=== PATIENT | female | born 1945 | race Caucasian/White ===

== ENCOUNTER 2023-04-02 12:42 | Inpatient (IN) ==
[2023-04-02 12:58] VITALS: BMI 37.4
[2023-04-02 13:00] LABS: ABG HCO3 27.1 mmol/L (22-26)
--- NOTE | 2023-04-02 13:05 | DR.SOBA ---
HPI Time Seen Time Seen by Provider: 04/02/23 13:04 Primary Care Physician Primary Care Physician: Mahamed Complaints Chief Complaint:: Shortness of breath, saw PCP yesterday and then called PCP today and was told to come to the ER. Zonia states that they checked her O2 at home and she was on sating in the 80s. COVID-19 Coronavirus risk:travel/contact w/high risk person: No Has patient experienced Coronavirus symptoms: No Source History Provided: Patient Mode of Arrival Mode of Arrival: Ambulatory Timing Onset of Chief Complaint: 04/02/23 PMH PMH Past Medical History: Yes Past Medical History: Hypertension and Hypothyroidism Past Medical History Comment: incontinence, pre diabetes (A1C 6.3) Past Surgical History: Yes Surgical History: Appendectomy, , Cholecystectomy, Hysterectomy, Ortho Surgery and Tonsillectomy Past Surgical History Comment: left total knee, dental surgery, CMP left wrist, back surgery Family History History of Family Medical Conditions: Yes Family Medical History: Diabetes Mellitus, Cancer, Coronary Artery Disease and Hypertension Social History Alcohol Use: None Do you use any recreational Drugs:: No Lives With: Family Lives Where: Home Travel Risk Coronavirus risk:travel/contact w/high risk person: No Has patient experienced Coronavirus symptoms: No Infectious screening Have you traveled outside the country in the last 6 months?: No Isolation: Standard PE Vital Signs Vitals: Vital Signs Temperature 98.7 F Temperature 98.7 F Pulse Rate [Left Radial] 63 Pulse Rate 58 Pulse Rate 59 Pulse Rate 63 Respiratory Rate 14 Respiratory Rate 16 Respiratory Rate 24 Respiratory Rate 24 Blood Pressure [Left Arm] 180/79 Blood Pressure 180/79 O2 Sat by Pulse Oximetry 94 O2 Sat by Pulse Oximetry 94 O2 Sat by Pulse Oximetry 87 O2 Sat by Pulse Oximetry 87 ROR Labs Reviewed 04/02/23 13:25 04/02/23 13:25 Laboratory: WBC 8.1 X10^3/uL (3.6-10.0) 04/02/23 13:25 RBC 3.58 X10^6/uL (3.5-5.4) 04/02/23 13:25 Hgb 11.4 g/dL (12.0-16.0) L 04/02/23 13:25 Hct 33.2 % (36.0-47.0) L 04/02/23 13:25 MCV 92.9 fL (80.0-100.0) 04/02/23 13:25 MCH 31.9 pg (27.0-34.0) 04/02/23 13:25 MCHC 34.4 g/dL (33.0-35.0) 04/02/23 13:25 RDW 13.8 % (11.6-16.5) 04/02/23 13:25 Plt Count 293 X10^3/uL (150.0-450.0) 04/02/23 13:25 MPV 8.3 fL (7.4-11.0) 04/02/23 13:25 Neut % (Auto) 76.4 % (42.0-75.0) H 04/02/23 13:25 Lymph % (Auto) 12.8 % (21.0-51.0) L 04/02/23 13:25 [place] % (Auto) 5.3 % (0.0-13.0) 04/02/23 13:25 Eos % (Auto) 4.0 % (0.9-2.9) H 04/02/23 13:25 Baso % (Auto) 1.5 % (0.2-1.0) H 04/02/23 13:25 Neut # (Auto) 6.2 x10^3/uL (2.2-4.8) H 04/02/23 13:25 Lymph # (Auto) 1.0 X10^3/uL (1.3-2.9) L 04/02/23 13:25 [place] # (Auto) 0.4 x10^3/uL (0.3-0.8) 04/02/23 13:25 Eos # (Auto) 0.3 x10^3/uL (0.0-0.2) H 04/02/23 13:25 Baso # (Auto) 0.1 X10^3/uL (0.0-0.1) 04/02/23 13:25 Absolute Nucleated RBC 0.0 /100WBC 04/02/23 13:25 D-Dimer 1.04 ug/ml (0.0-0.57) H 04/02/23 13:25 Sample Site Rbra 04/02/23 12:50 ABG pH 7.450 (7.35-7.45) 04/02/23 12:50 ABG pCO2 39.0 mmHg (35.0-45.0) 04/02/23 12:50 ABG pO2 47.0 mmHg (80.0-100.0) L* 04/02/23 12:50 ABG HCO3 27.1 mmol/L (22-26) H 04/02/23 12:50 ABG O2 Saturation 85.0 % (90-100) L 04/02/23 12:50 ABG Base Excess 3.0 mmol/L (-2.0-2.0) H 04/02/23 12:50 Damien Test N/a 04/02/23 12:50 A-a Gradient 54.0 mmHg 04/02/23 12:50 FiO2 21.0 04/02/23 12:50 Blood Gas Comments Pt alvaro well elj 04/02/23 12:50 Sodium 131 mmol/L (136-145) L 04/02/23 13:25 Corrected Sodium 132 mmol/L (136-145) L 04/02/23 13:25 Potassium 4.2 mmol/L (3.5-5.1) 04/02/23 13:25 Chloride 98 mmol/L (98-107) 04/02/23 13:25 Carbon Dioxide 23.7 mmol/L (21-32) 04/02/23 13:25 BUN 11 mg/dL (7-18) 04/02/23 13:25 Creatinine 0.83 mg/dL (0.55-1.02) 04/02/23 13:25 Est GFR (MDRD) Af Amer > 60 (>60) 04/02/23 13:25 Est GFR (MDRD) Non-Af > 60 (>60) 04/02/23 13:25 Glucose 147 mg/dL (65-99) H 04/02/23 13:25 Calcium 8.7 mg/dL (8.5-10.1) 04/02/23 13:25 Corrected Calcium 9.4 mg/dL (8.5-10.1) 04/02/23 13:25 Total Bilirubin 0.40 mg/dL (0.2-1.0) 04/02/23 13:25 AST 21 Units/L (15-37) 04/02/23 13:25 ALT 10 Units/L (12-78) L 04/02/23 13:25 Alkaline Phosphatase 55 Units/L (46-116) 04/02/23 13:25 B-Natriuretic Peptide 415 pg/mL (0-79) H 04/02/23 13:25 Total Protein 7.0 g/dL (6.4-8.2) 04/02/23 13:25 Albumin 3.1 g/dL (3.4-5.0) L 04/02/23 13:25 Globulin 3.9 g/dL (2.5-4.5) 04/02/23 13:25 Albumin/Globulin Ratio 0.8 Ratio (1.1-2.1) L 04/02/23 13:25 Specimen Type Catherized urine 04/02/23 16:23 Urine Color Pale yellow (YELLOW) 04/02/23 16:23 Urine Appearance Clear (CLEAR) 04/02/23 16:23 Urine pH 7.0 (5.0 - 8.0) 04/02/23 16:23 Ur Specific [place] 1.015 (1.000-1.030) 04/02/23 16:23 Urine Protein 1+ (NEGATIVE) 04/02/23 16:23 Urine Glucose (UA) Negative (NEGATIVE) 04/02/23 16:23 Urine Ketones Negative (NEGATIVE) 04/02/23 16:23 Urine Blood Negative (NEGATIVE) 04/02/23 16:23 Urine Nitrite Negative (NEGATIVE) 04/02/23 16:23 Urine Bilirubin Negative (NEGATIVE) 04/02/23 16:23 Urine Urobilinogen Normal (NORMAL) 04/02/23 16:23 Ur Leukocyte Esterase Negative (NEGATIVE) 04/02/23 16:23 Urine RBC 0-2 /HPF (0-3) 04/02/23 16:23 Urine WBC None seen /HPF (0-5) 04/02/23 16:23 Ur Squamous Epith Cells Rare /HPF (NEGATIVE) 04/02/23 16:23 Ur Renal Epithelial Cell Rare /HPF (NEGATIVE) 04/02/23 14:22 Urine Bacteria Negative /HPF (NEGATIVE) 04/02/23 16:23 Urine Yeast Rare /HPF (NEGATIVE) 04/02/23 16:23 Ur Culture Indicated? No/not indicated 04/02/23 16:23 SARS-CoV-2 (PCR) Negative (NEGATIVE) 04/02/23 12:56 Influenza Type A (PCR) Negative (NEGATIVE) 04/02/23 12:56 Influenza Type B (PCR) Negative (NEGATIVE) 04/02/23 12:56 RSV (PCR) Negative (NEGATIVE) 04/02/23 12:56 Opioid Opioid Risk Tool Age (Jed box if 16-45): No History of Preadolescent Sexual Abuse: No Total: 0 Total Score Risk Category: Low Risk Copyright: Hari SOTO predicting aberrant behaviors Discharge Plan Discharge Plan Patient Disposition: 01 HOME, SELF-CARE Condition: Stable Prescriptions: No Action gabapentin 600 mg tablet 600 mg PO QHS Patient Comments: TAKE ONE TABLET BY MOUTH AT BEDTIME atorvastatin 20 mg Tablet 20 mg PO QHS tizanidine 4 mg tablet 4 mg PO QHS Patient Comments: TAKE ONE TABLET BY MOUTH AT BEDTIME hydrocodone-acetaminophen 10-325 mg tablet 1 tab PO TID PRN Patient Comments: TAKE ONE TABLET BY MOUTH THREE TIMES DAILY esomeprazole magnesium [Nexium] 40 mg Capsule,Delayed Release(Dr/Ec) 80 mg PO BID levothyroxine [Synthroid] 125 mcg tablet 125 mcg PO DAILY Patient Comments: TAKE ONE TABLET BY MOUTH DAILY dicyclomine 10 mg Capsule 10 mg PO BID PRN pramipexole 1.5 mg tablet 1.5 mg PO BID Patient Comments: TAKE ONE TABLET BY MOUTH TWICE DAILY escitalopram oxalate [Lexapro] 20 mg Tablet 20 mg PO DAILY PRN duloxetine [Cymbalta] 30 mg Capsule,Delayed Release(Dr/Ec) 30 mg PO BID fenofibrate nanocrystallized 145 mg tablet 145 mg PO QHS Patient Comments: TAKE ONE TABLET BY MOUTH DAILY nebivolol [Bystolic] 20 mg Tablet 20 mg PO DAILY Myrbetriq 50 mg Tablet Extended Release 24 Hr 50 mg PO QAM Ozempic 0.25 mg or 0.5 mg(2 mg/1.5 mL) pen injector 0.25 mg SUBCUT WEEKLY Patient Comments: INJECT 0.5 Milligram(s) Subcutaneous once a week Rx Instructions: TAKES ON TUESDAY zolpidem 10 mg tablet 10 mg PO QHS Patient Comments: TAKE ONE TABLET BY MOUTH AT BEDTIME Health Concerns: Post Hospitalization: new medications and changes needed to prevent readmission or further decline. Pt educated and given instructions on all concerns. Plan of Treatment: Continue with present treatment and follow up plan. Pt is to keep follow up appointment as instructed and take medications as ordered. Orders to Discharge Patient Discharge Orders: Transfer (Routine); Ordered 04/02/23 Ordered By: JOEL BONNER Follow ups/Referrals Follow ups/Referrals: Alfonso Irby [Primary Care Provider] - 3 days Instructions Stand Alone Forms: Post Hospital Follow Up Care
[2023-04-02 13:31] LABS: BASOPHILS # (AUTO) 0.1 X10^3/uL (0.0-0.1); BASOPHILS % (AUTO) 1.5 % (0.2-1.0); EOSINOPHILS # (AUTO) 0.3 x10^3/uL (0.0-0.2); HEMATOCRIT 33.2 % (36.0-47.0); HEMOGLOBIN 11.4 g/dL (12.0-16.0); LYMPHOCYTES % (AUTO) 12.8 % (21.0-51.0); MEAN CORPUSCULAR HEMOGLOBIN 31.9 pg (27.0-34.0); MEAN CORPUSCULAR HGB CONC 34.4 g/dL (33.0-35.0); MEAN CORPUSCULAR VOLUME 92.9 fL (80.0-100.0); MEAN PLATELET VOLUME 8.3 fL (7.4-11.0); MONOCYTES # (AUTO) 0.4 x10^3/uL (0.3-0.8); MONOCYTES % (AUTO) 5.3 % (0.0-13.0); NEUTROPHILS # (AUTO) 6.2 x10^3/uL (2.2-4.8); NEUTROPHILS % (AUTO) 76.4 % (42.0-75.0); PLATELET COUNT 293 X10^3/uL (150.0-450.0); RED BLOOD COUNT 3.58 X10^6/uL (3.5-5.4); RED CELL DISTRIBUTION WIDTH 13.8 % (11.6-16.5); WHITE BLOOD COUNT 8.1 X10^3/uL (3.6-10.0)
[2023-04-02 13:43] LABS: ALANINE AMINOTRANSFERASE 10 Units/L (12-78); ALBUMIN 3.1 g/dL (3.4-5.0); ALKALINE PHOSPHATASE 55 Units/L (46-116); ASPARTATE AMINO TRANSFERASE 21 Units/L (15-37); BLOOD UREA NITROGEN 11 mg/dL (7-18); CALCIUM 8.7 mg/dL (8.5-10.1); CARBON DIOXIDE 23.7 mmol/L (21-32); CHLORIDE 98 mmol/L (98-107); COR CA(FOR HYPOALB) 9.4 mg/dL (8.5-10.1); COR NA(FOR HYPERGLY) 132 mmol/L (136-145); CREATININE 0.83 mg/dL (0.55-1.02); GLUCOSE 147 mg/dL (65-99); POTASSIUM 4.2 mmol/L (3.5-5.1); SODIUM 131 mmol/L (136-145); eGFR NON BLACK RACES > 60 (>60)
--- NOTE | 2023-04-02 13:46 | RAD ---
EXAM:CHEST, 1 VIEWHISTORY:Shortness of breathCOMPARISON:None available.FINDINGS:The trachea is midline. The cardiac silhouette is enlarged with a tortuous thoracic aorta . Increased interstitial changes with prominent vascular markings are observed consistent with underlying CHF.. The bony thorax is unremarkable.IMPRESSION:Increased interstitial changes with prominent vascular markings are observed consistent with underlying CHF.THIS IS AN ELECTRONICALLY VERIFIED FINAL REPORT04/02/2023 1:33 PM - Electronically signed by Jaswant Jordan MD
[2023-04-02 14:35] LABS: BILIRUBIN,URINE NEGATIVE (NEGATIVE); BLOOD/HEMOGLOBIN,URINE NEGATIVE (NEGATIVE); GLUCOSE, URINE NEGATIVE (NEGATIVE); KETONES,URINE NEGATIVE (NEGATIVE); LEUKOCYTE ESTERASE ,URINE NEGATIVE (NEGATIVE); NITRITES,URINE NEGATIVE (NEGATIVE); PH,URINE 6.5 (5.0 - 8.0); PROTEIN,URINE 1+ (NEGATIVE); UROBILINOGEN,URINE NORMAL (NORMAL)
[2023-04-02] MEDS ORDERED: OMNIPAQUE 350 mg/mL 100 mL BTL 100 ML ONE (14:50)
[2023-04-02 14:52] LABS: APPEARANCE,URINE CLEAR (CLEAR); COLOR,URINE YELLOW (YELLOW)
[2023-04-02 14:53] LABS: BACTERIA,URINE NEGATIVE /HPF (NEGATIVE); RBC,URINE 0-2 /HPF (0-3); RENAL EPITHELIAL CELLS,URINE RARE /HPF (NEGATIVE); SQUAMOUS EPITHELIAL CELL,UR RARE /HPF (NEGATIVE)
[2023-04-02 14:54] LABS: YEAST,URINE RARE /HPF (NEGATIVE)
--- NOTE | 2023-04-02 15:41 | CT ---
EXAM:CTA, CHESTHISTORY:Shortness of breathCOMPARISON:None available.TECHNIQUE:Multiple axial images of the chest were obtained from the thoracic inlet to the upper abdomen after the administration of IV contrast. 3D reconstructions utilizing axial MIPS imaging was performed and reviewed. Dose reduction techniques including Automated Exposure Control (AEC) and adjustment of mA and kV were utilized.FINDINGS:The mediastinum does not demonstrate significant pathological lymphadenopathy. There is no paracardial effusion observed. The thoracic aorta is normal in its contour without evidence for aneurysmal dilatation. The central pulmonary arterial system does not demonstrate central filling defects to suggest pulmonary emboli.Evaluation of the lung parenchyma demonstrates diffuse ground-glass opacities throughout the right and left hemithorax consistent with a developing pulmonary edema. Likewise, very small layering pleural effusions of the right and left hemithorax are observed.. The bony thorax is unremarkable in its appearance . The visualized portions of the upper abdomen are grossly unremarkable .IMPRESSION:No evidence for acute pulmonary embolus can be observed. However, developing ground-glass opacities throughout the right and left hemithorax consistent with developing pulmonary edema and associated CHF.Very small layering pleural effusions on the right and left are noted.THIS IS AN ELECTRONICALLY VERIFIED FINAL REPORT04/02/2023 3:29 PM - Electronically signed by Jaswant Jordan MD
[2023-04-02] MEDS ORDERED: LASIX IVP ONE ×2 (15:59→16:05)
[2023-04-02 16:38] LABS: BILIRUBIN,URINE NEGATIVE (NEGATIVE); BLOOD/HEMOGLOBIN,URINE NEGATIVE (NEGATIVE); GLUCOSE, URINE NEGATIVE (NEGATIVE); KETONES,URINE NEGATIVE (NEGATIVE); LEUKOCYTE ESTERASE ,URINE NEGATIVE (NEGATIVE); NITRITES,URINE NEGATIVE (NEGATIVE); PROTEIN,URINE 1+ (NEGATIVE); UROBILINOGEN,URINE NORMAL (NORMAL)
[2023-04-02 16:50] LABS: APPEARANCE,URINE CLEAR (CLEAR); COLOR,URINE PALE YELLOW (YELLOW); RBC,URINE 0-2 /HPF (0-3); SQUAMOUS EPITHELIAL CELL,UR RARE /HPF (NEGATIVE)
[2023-04-02 16:51] LABS: BACTERIA,URINE NEGATIVE /HPF (NEGATIVE); YEAST,URINE RARE /HPF (NEGATIVE)
[2023-04-02] MEDS: K-DUR TAB 20 MEQ PO SCH (21:13)
[2023-04-02] MEDS: NORCO 5/325 MG TAB PO PRN (22:49)
[2023-04-03] MEDS ORDERED: Atrovent NEB TX 0.02% NEB ONE (01:02)
[2023-04-03] MEDS ORDERED: Atrovent NEB TX 0.02% ONE (01:05)
[2023-04-03] MEDS ORDERED: MORPHINE SULFATE INJ 2 MG INJ IVP ONE (01:18)
[2023-04-03 06:47] LABS: BASOPHILS # (AUTO) 0.1 X10^3/uL (0.0-0.1); BASOPHILS % (AUTO) 1.2 % (0.2-1.0); EOSINOPHILS # (AUTO) 0.4 x10^3/uL (0.0-0.2); EOSINOPHILS % (AUTO) 3.6 % (0.9-2.9); HEMATOCRIT 34.8 % (36.0-47.0); HEMOGLOBIN 11.8 g/dL (12.0-16.0); LYMPHOCYTES # (AUTO) 1.5 X10^3/uL (1.3-2.9); LYMPHOCYTES % (AUTO) 13.5 % (21.0-51.0); MEAN CORPUSCULAR HEMOGLOBIN 31.3 pg (27.0-34.0); MEAN CORPUSCULAR VOLUME 92.1 fL (80.0-100.0); MEAN PLATELET VOLUME 8.9 fL (7.4-11.0); MONOCYTES # (AUTO) 0.7 x10^3/uL (0.3-0.8); MONOCYTES % (AUTO) 6.4 % (0.0-13.0); NEUTROPHILS # (AUTO) 8.4 x10^3/uL (2.2-4.8); NEUTROPHILS % (AUTO) 75.3 % (42.0-75.0); PLATELET COUNT 372 X10^3/uL (150.0-450.0); RED BLOOD COUNT 3.78 X10^6/uL (3.5-5.4); RED CELL DISTRIBUTION WIDTH 13.9 % (11.6-16.5); WHITE BLOOD COUNT 11.2 X10^3/uL (3.6-10.0)
[2023-04-03 07:20] LABS: ALANINE AMINOTRANSFERASE 13 Units/L (12-78); ALBUMIN 3.4 g/dL (3.4-5.0); ALKALINE PHOSPHATASE 61 Units/L (46-116); BLOOD UREA NITROGEN 11 mg/dL (7-18); CARBON DIOXIDE 24.7 mmol/L (21-32); CREATININE 0.87 mg/dL (0.55-1.02); GLUCOSE 121 mg/dL (65-99); TOTAL PROTEIN 7.9 g/dL (6.4-8.2); eGFR NON BLACK RACES > 60 (>60)
[2023-04-03 07:24] LABS: CHLORIDE 97 mmol/L (98-107); COR NA(FOR HYPERGLY) 135 mmol/L (136-145); POTASSIUM 4.2 mmol/L (3.5-5.1); SODIUM 134 mmol/L (136-145)
[2023-04-03 07:45] LABS: ASPARTATE AMINO TRANSFERASE 28 Units/L (15-37)
--- NOTE | 2023-04-03 07:45 | RAD ---
HISTORYCHF, PULMONARY EDEMASTUDYCHEST, 1 [id number]/2023FINDINGSThe cardiomediastinal silhouette is stable. No acute airspace disease. Probable small effusions. No pneumothorax. The bony thorax appears intact.IMPRESSIONSimilar probable small effusions.Electronically signed by: EARL SUGGS (Apr 03, 2023 07:44:18)
[2023-04-03] MEDS: K-DUR TAB 20 MEQ PO SCH ×2 (09:19→20:59)
[2023-04-03] MEDS: MILK OF MAGNESIA PO SCH ×2 (09:19→20:59)
[2023-04-03] MEDS: COLACE CAP 100 MG PO SCH ×2 (09:19→20:59)
[2023-04-03] MEDS: LASIX IVP SCH ×2 (09:20→16:46)
[2023-04-03] MEDS: NORCO 5/325 MG TAB PO PRN ×2 (11:32→19:33)
--- NOTE | 2023-04-03 14:16 | DR.H&P ---
H&P - History & Physical for Day of: H&P Date: 04/02/23 - Chief Complaint Chief Complaint: SOB - History of Present Illness History of Present Illness: Pt is 77 WF, ER admission with fo shortness of breath. Pt reports she saw PCP ~ and was give augmentin for URI. Daugther states that they checked her O2 at home and she was on sating in the 80s. Pt reports her last echo was in DECEMBER and heart cath in January without intervention required. Pt denies any fever or GI symptoms. - Past Medical History Past Medical History: Arthritis, Hypertension, Hypothyroidism - Past Surgical History Surgical History: Appendectomy, Cholecystectomy, , Hysterectomy, Ortho Surgery, Tonsillectomy - Family History Family Medical History: Cancer - Social History Does patient currently use any type of tobacco product: No Have you used tobacco products in the last 12 months: No Type of Tobacco Use: None Does any household member use tobacco: No Alcohol Use: None Drug Use: None - Review of Systems Constitutional: Weakness, Malaise Eyes: No Symptoms Reported ENT: No Symptoms Reported Respiratory: Shortness of Breath Cardiovascular: Edema Gastrointestinal: No Symptoms Reported Genitourinary: No Symptoms Reported Musculoskeletal: Arm Pain Skin: Wound (post operative wound to left hand/wrist with dressing and splint in place) Neurological: No Symptoms Reported - Physical Exam Vital Signs: Vital Signs Respiratory Rate 18 Respiratory Rate 18 Oriented: Normal Eyes: Normal Ear: Normal Nose: Normal Throat: Normal Respiratory: RLL Diminished, LLL Diminished Cardiovascular: Normal, Edema : Normal Auscultation: Bowel Sounds: Normal Palpation: Normal Tenderness: Normal Skin: Decreased Turgur Musculoskeletal: Left, Wrist, Hand Psychiatric: Anxiety Affect: Anxious Speech Pattern: Clear, Appropriate - Assessment/Plan (1) CHF (congestive heart failure) Status: Acute Plan: ADMIT, SUPPLEMENTAL O2. IV LASIX WITH STRICT I&OS. REPEAT AM LABS AND CXR. ABG OBTAINED ON ADMISSION, BNP ON ADMISSION. TELEMETRY, BP CONTROL. CTA OF LUNGS NEGATIVE FOR PE, OBTAINED IN ER ON ADMISSION (2) Hypoxia Status: Acute (3) Hypertension Status: Acute - Allergies Allergies/Adverse Reactions: Allergies Allergy/AdvReac Type Severity Reaction Status Date / Time albuterol Allergy Verified 11/03/21 20:30 amitriptyline Allergy Verified 11/03/21 20:30 gemfibrozil [From Lopid] Allergy Verified 11/03/21 20:30 levofloxacin [From Levaquin] Allergy Verified 11/03/21 20:30 milnacipran [From Savella] Allergy Verified 11/03/21 20:30 [id number] Reductase Allergy Verified 11/03/21 20:30 Inhibitor topiramate [From Topamax] Allergy Verified 11/03/21 20:30 adhesive tape AdvReac Severe RASH Uncoded 11/03/21 20:41 - Medications Home Medications: Home Medications Medication Instructions Recorded Confirmed atorvastatin 20 mg tablet 20 mg PO QHS 11/03/21 11/03/21 dicyclomine 10 mg capsule 10 mg PO BID PRN 11/03/21 11/03/21 duloxetine 30 mg capsule,delayed 30 mg PO BID 11/03/21 11/03/21 release (Cymbalta) escitalopram oxalate 20 mg tablet 20 mg PO DAILY PRN 11/03/21 11/03/21 (Lexapro) esomeprazole magnesium 40 mg 80 mg PO BID 11/03/21 11/03/21 capsule,delayed release (Nexium) fenofibrate nanocrystallized 145 145 mg PO QHS 11/03/21 04/02/23 mg tablet mirabegron 50 mg tablet,extended 50 mg PO HS 11/03/21 04/02/23 release 24 hr (Myrbetriq) pramipexole 1.5 mg tablet 1.5 mg PO BID 11/03/21 04/02/23 tizanidine 4 mg tablet 4 mg PO QHS 11/03/21 11/03/21 zolpidem 10 mg tablet 10 mg PO QHS 11/03/21 11/03/21 amoxicillin 875 mg-potassium 1 tab PO BID 04/02/23 04/02/23 clavulanate 125 mg tablet gabapentin 300 mg capsule 300 mg PO BID 04/02/23 04/02/23 hydrocodone 5 mg-acetaminophen 325 1 tab PO Q8H PRN pain 04/02/23 04/02/23 mg tablet levothyroxine 112 mcg tablet 112 mcg PO DAILY 04/02/23 04/02/23 (Synthroid) losartan 50 mg tablet 50 mg PO QDAY 04/02/23 04/02/23 nebivolol 10 mg tablet 10 mg PO DAILY 04/02/23 04/02/23 oxybutynin chloride 15 mg 15 mg PO QDAY 04/02/23 04/02/23 tablet,extended release 24 hr primidone 50 mg tablet 50 mg PO HS 04/02/23 04/02/23 sertraline 25 mg tablet (Zoloft) 25 mg PO DAILY 04/02/23 04/02/23
--- NOTE | 2023-04-03 14:19 | PCM.PROG ---
Progress Note - Progress Note for Day of Date of Exam: 04/03/23 - Subjective Subjective: PT IS 77 WF, ER ADMISSION WITH SOB, HYPOXIA AND BILATERAL PLEURAL EFFUSIONS. PT WAS TREATED WITH IV LASIX AND SUPPLEMENTAL O2. PT REPEAT CXR REVEALED IMPROVING CHF. PT REPORTS SOB HAS IMPROVED SINCE ADMISSION. PT STATES SHE STILL FEELS WEAK. PT REPORTS HER LAST ECHO AND CATH WERE "STABLE" AND HER DOG TRACK KENNEL MANAGER IS DR STACK IN [place]. PT DENIES ANY CHEST PAIN, ONLY RECENT URI SYMPTOMS. LAST ECHO REPORT REQUESTED. PLAN TO CONTINUE WITH LASIX AND POTASSIUM REPLACEMENT WITH REPEAT AM CXR. CE AND EKG ORDERED. - Past Medical Family Social History Past Med/Fam/Surg Hx: No changes since H&P Allergies: Allergies albuterol Allergy (Verified 11/03/21 20:30) amitriptyline Allergy (Verified 11/03/21 20:30) gemfibrozil [From Lopid] Allergy (Verified 11/03/21 20:30) levofloxacin [From Levaquin] Allergy (Verified 11/03/21 20:30) milnacipran [From Savella] Allergy (Verified 11/03/21 20:30) Femryha-KTE-WaN Reductase Inhibitor Allergy (Verified 11/03/21 20:30) topiramate [From Topamax] Allergy (Verified 11/03/21 20:30) adhesive tape Adverse Reaction (Severe, Uncoded 11/03/21 20:41) RASH - Review of Systems ROS: No change since H&P - Vital Signs and I&O's Vital Signs: Vital Signs Respiratory Rate 18 Respiratory Rate 18 Intake and Output: Intake & Output 04/01/23 04/02/23 04/03/23 04/04/23 11:59 11:59 11:59 11:59 Intake Total 240 / 240 Output Total 2500 / 2500 Balance -2260 / -2260 - Physical Exam Oriented: Normal Eyes: Normal Ear: Normal Nose: Normal Throat: Normal Cardiovascular: Normal, Edema : Normal Auscultation: Bowel Sounds: Normal Tenderness: Normal Skin: Decreased Turgur Musculoskeletal: Left, Wrist, Hand Psychiatric: Anxiety Affect: Anxious Speech Pattern: Clear, Appropriate - Laboratory and Diagnostics Result Diagrams: 04/03/23 06:05 04/03/23 06:05 Labs: Laboratory WBC 11.2 X10^3/uL (3.6-10.0) H 04/03/23 06:05 RBC 3.78 X10^6/uL (3.5-5.4) 04/03/23 06:05 Hgb 11.8 g/dL (12.0-16.0) L 04/03/23 06:05 Hct 34.8 % (36.0-47.0) L 04/03/23 06:05 MCV 92.1 fL (80.0-100.0) 04/03/23 06:05 MCH 31.3 pg (27.0-34.0) 04/03/23 06:05 MCHC 34.0 g/dL (33.0-35.0) 04/03/23 06:05 RDW 13.9 % (11.6-16.5) 04/03/23 06:05 Plt Count 372 X10^3/uL (150.0-450.0) 04/03/23 06:05 MPV 8.9 fL (7.4-11.0) 04/03/23 06:05 Neut % (Auto) 75.3 % (42.0-75.0) H 04/03/23 06:05 Lymph % (Auto) 13.5 % (21.0-51.0) L 04/03/23 06:05 [place] % (Auto) 6.4 % (0.0-13.0) 04/03/23 06:05 Eos % (Auto) 3.6 % (0.9-2.9) H 04/03/23 06:05 Baso % (Auto) 1.2 % (0.2-1.0) H 04/03/23 06:05 Neut # (Auto) 8.4 x10^3/uL (2.2-4.8) H 04/03/23 06:05 Lymph # (Auto) 1.5 X10^3/uL (1.3-2.9) 04/03/23 06:05 [place] # (Auto) 0.7 x10^3/uL (0.3-0.8) 04/03/23 06:05 Eos # (Auto) 0.4 x10^3/uL (0.0-0.2) H 04/03/23 06:05 Baso # (Auto) 0.1 X10^3/uL (0.0-0.1) 04/03/23 06:05 Absolute Nucleated RBC 0.1 /100WBC 04/03/23 06:05 D-Dimer 1.04 ug/ml (0.0-0.57) H 04/02/23 13:25 Sample Site Rbra 04/02/23 12:50 ABG pH 7.450 (7.35-7.45) 04/02/23 12:50 ABG pCO2 39.0 mmHg (35.0-45.0) 04/02/23 12:50 ABG pO2 47.0 mmHg (80.0-100.0) L* 04/02/23 12:50 ABG HCO3 27.1 mmol/L (22-26) H 04/02/23 12:50 ABG O2 Saturation 85.0 % (90-100) L 04/02/23 12:50 ABG Base Excess 3.0 mmol/L (-2.0-2.0) H 04/02/23 12:50 Damien Test N/a 04/02/23 12:50 A-a Gradient 54.0 mmHg 04/02/23 12:50 FiO2 21.0 04/02/23 12:50 Blood Gas Comments Pt alvaro well elj 04/02/23 12:50 Sodium 134 mmol/L (136-145) L 04/03/23 06:05 Corrected Sodium 135 mmol/L (136-145) L 04/03/23 06:05 Potassium 4.2 mmol/L (3.5-5.1) 04/03/23 06:05 Chloride 97 mmol/L (98-107) L 04/03/23 06:05 Carbon Dioxide 24.7 mmol/L (21-32) 04/03/23 06:05 BUN 11 mg/dL (7-18) 04/03/23 06:05 Creatinine 0.87 mg/dL (0.55-1.02) 04/03/23 06:05 Est GFR (MDRD) Af Amer > 60 (>60) 04/03/23 06:05 Est GFR (MDRD) Non-Af > 60 (>60) 04/03/23 06:05 Glucose 121 mg/dL (65-99) H 04/03/23 06:05 POC Glucose (mg/dL) 137 mg/dL (65-99) H 04/03/23 11:33 Calcium 9.0 mg/dL (8.5-10.1) 04/03/23 06:05 Corrected Calcium TNP 04/03/23 06:05 Total Bilirubin 0.60 mg/dL (0.2-1.0) 04/03/23 06:05 AST 28 Units/L (15-37) 04/03/23 06:05 ALT 13 Units/L (12-78) 04/03/23 06:05 Alkaline Phosphatase 61 Units/L (46-116) 04/03/23 06:05 B-Natriuretic Peptide 213 pg/mL (0-79) H 04/03/23 06:05 Total Protein 7.9 g/dL (6.4-8.2) 04/03/23 06:05 Albumin 3.4 g/dL (3.4-5.0) 04/03/23 06:05 Globulin 4.5 g/dL (2.5-4.5) 04/03/23 06:05 Albumin/Globulin Ratio 0.8 Ratio (1.1-2.1) L 04/03/23 06:05 Specimen Type Catherized urine 04/02/23 16:23 Urine Color Pale yellow (YELLOW) 04/02/23 16:23 Urine Appearance Clear (CLEAR) 04/02/23 16:23 Urine pH 7.0 (5.0 - 8.0) 04/02/23 16:23 Ur Specific [place] 1.015 (1.000-1.030) 04/02/23 16:23 Urine Protein 1+ (NEGATIVE) 04/02/23 16:23 Urine Glucose (UA) Negative (NEGATIVE) 04/02/23 16:23 Urine Ketones Negative (NEGATIVE) 04/02/23 16:23 Urine Blood Negative (NEGATIVE) 04/02/23 16:23 Urine Nitrite Negative (NEGATIVE) 04/02/23 16:23 Urine Bilirubin Negative (NEGATIVE) 04/02/23 16:23 Urine Urobilinogen Normal (NORMAL) 04/02/23 16:23 Ur Leukocyte Esterase Negative (NEGATIVE) 04/02/23 16:23 Urine RBC 0-2 /HPF (0-3) 04/02/23 16:23 Urine WBC None seen /HPF (0-5) 04/02/23 16:23 Ur Squamous Epith Cells Rare /HPF (NEGATIVE) 04/02/23 16:23 Ur Renal Epithelial Cell Rare /HPF (NEGATIVE) 04/02/23 14:22 Urine Bacteria Negative /HPF (NEGATIVE) 04/02/23 16:23 Urine Yeast Rare /HPF (NEGATIVE) 04/02/23 16:23 Ur Culture Indicated? No/not indicated 04/02/23 16:23 SARS-CoV-2 (PCR) Negative (NEGATIVE) 04/02/23 12:56 Influenza Type A (PCR) Negative (NEGATIVE) 04/02/23 12:56 Influenza Type B (PCR) Negative (NEGATIVE) 04/02/23 12:56 RSV (PCR) Negative (NEGATIVE) 04/02/23 12:56 - Plan (1) CHF (congestive heart failure) Status: Acute Plan: SUPPLEMENTAL O2. CE, EKG. IV LASIX WITH STRICT I&OS. REPEAT AM LABS AND CXR. ABG OBTAINED ON ADMISSION, BNP ON ADMISSION. TELEMETRY, BP CONTROL. CTA OF LUNGS NEGATIVE FOR PE, OBTAINED IN ER ON ADMISSION (2) Hypoxia Status: Acute (3) Hypertension Status: Acute
--- NOTE | 2023-04-03 14:21 | EKG ---
Test Reason : CHF Blood Pressure : */* mmHG Vent. Rate : 63 BPM Atrial Rate : 63 BPM P-R Int : 162 ms QRS Dur : 80 ms QT Int : 424 ms P-R-T Axes : 39 1 34 degrees QTc Int : 433 ms Normal sinus rhythm Minimal voltage criteria for LVH, may be normal variant ( R in aVL ) Borderline ECG No previous ECGs available Confirmed by Gary Islas ([id number]) on 04/04/2023 8:49:55 AM Referred By: Confirmed By: Gary Islas
[2023-04-03] MEDS ORDERED: SYNTHROID 112 mcg TAB PO SCH (15:00)
[2023-04-03] MEDS: COZAAR PO SCH (15:35)
[2023-04-03] MEDS: MYSOLINE PO SCH (21:00)
[2023-04-03] MEDS: LIPITOR TAB 20 MG PO SCH (21:00)
[2023-04-03] MEDS: NEURONTIN CAP 300 MG PO SCH (21:00)
[2023-04-04] MEDS: SYNTHROID 112 mcg TAB PO SCH (05:35)
[2023-04-04 06:12] LABS: BASOPHILS # (AUTO) 0.1 X10^3/uL (0.0-0.1); BASOPHILS % (AUTO) 0.9 % (0.2-1.0); EOSINOPHILS # (AUTO) 0.4 x10^3/uL (0.0-0.2); EOSINOPHILS % (AUTO) 3.9 % (0.9-2.9); HEMATOCRIT 37.7 % (36.0-47.0); HEMOGLOBIN 13.1 g/dL (12.0-16.0); LYMPHOCYTES # (AUTO) 2.2 X10^3/uL (1.3-2.9); LYMPHOCYTES % (AUTO) 20.4 % (21.0-51.0); MEAN CORPUSCULAR HEMOGLOBIN 31.8 pg (27.0-34.0); MEAN CORPUSCULAR HGB CONC 34.6 g/dL (33.0-35.0); MEAN CORPUSCULAR VOLUME 91.7 fL (80.0-100.0); MEAN PLATELET VOLUME 8.4 fL (7.4-11.0); MONOCYTES # (AUTO) 0.7 x10^3/uL (0.3-0.8); MONOCYTES % (AUTO) 6.5 % (0.0-13.0); NEUTROPHILS # (AUTO) 7.3 x10^3/uL (2.2-4.8); NEUTROPHILS % (AUTO) 68.3 % (42.0-75.0); PLATELET COUNT 458 X10^3/uL (150.0-450.0); RED BLOOD COUNT 4.11 X10^6/uL (3.5-5.4); RED CELL DISTRIBUTION WIDTH 13.6 % (11.6-16.5); WHITE BLOOD COUNT 10.7 X10^3/uL (3.6-10.0)
[2023-04-04 06:23] LABS: ALANINE AMINOTRANSFERASE 15 Units/L (12-78); ALBUMIN 3.5 g/dL (3.4-5.0); ALKALINE PHOSPHATASE 66 Units/L (46-116); ASPARTATE AMINO TRANSFERASE 25 Units/L (15-37); BLOOD UREA NITROGEN 17 mg/dL (7-18); CALCIUM 9.7 mg/dL (8.5-10.1); CARBON DIOXIDE 27.4 mmol/L (21-32); CHLORIDE 94 mmol/L (98-107); COR NA(FOR HYPERGLY) 134 mmol/L (136-145); CREATININE 0.89 mg/dL (0.55-1.02); GLUCOSE 127 mg/dL (65-99); POTASSIUM 4.3 mmol/L (3.5-5.1); SODIUM 133 mmol/L (136-145); TOTAL PROTEIN 8.3 g/dL (6.4-8.2); eGFR NON BLACK RACES > 60 (>60)
--- NOTE | 2023-04-04 07:58 | RAD ---
HISTORYSOB, HYPOXIA, PULMONARY EDEMASTUDYCHEST, 1 [id number].TECHNIQUEPA or AP view of the chestFINDINGSC-spine ACDF noted. Cardiac and mediastinal contours are within normal limits. Mild left base patchy opacity blunted left costophrenic sulcus. No pneumothorax.IMPRESSIONBlunted left costophrenic sulcus can be seen with small pleural effusion or pleuro-parynchemal scarring. Left base patchy opacity may represent atelectasis or infiltrate.Electronically signed by: Bebeto Contreras (Apr 04, 2023 07:56:51)
[2023-04-04] MEDS: COZAAR PO SCH (09:13)
[2023-04-04] MEDS: ZEBETA TAB 5 MG PO SCH (09:14)
[2023-04-04] MEDS: COLACE CAP 100 MG PO SCH ×2 (09:14→21:18)
[2023-04-04] MEDS: NEURONTIN CAP 300 MG PO SCH ×2 (09:14→21:18)
[2023-04-04] MEDS: LASIX IVP SCH ×3 (09:14→17:02)
[2023-04-04] MEDS: ZOLOFT PO SCH (09:14)
[2023-04-04] MEDS: MILK OF MAGNESIA PO SCH ×2 (09:15→21:23)
--- NOTE | 2023-04-04 10:07 | PCM.PROG ---
Progress Note - Progress Note for Day of Date of Exam: 04/04/23 - Subjective Subjective: IS A 77 YEAR OLD PATIENT OF OURS. SHE WAS ADMITTED ON 04/02 INPATIENT STATUS FOR TREATMENT OF CHF, HYPOXIA, AND HTN. HER PMH INCLUDES: MACULAR DEGENERATION, CATARACTS, CHF, ARTHRITIS, CHRONIC BACK PAIN, HYPOTHYROIDISM, APPENDECOMY, HYSTERECTOMY, TONSILLECTOMY, AND CHOLECYSTECTOMY. SHE WAS STARTED ON AUGMENTIN LAST WEEK FOR TREATMENT OF AN UPPER RESPIRATORY INFECTION. SHE PRESENTED TO THE ER ON TUESDAY WHEN HER SATURATIONS WERE STAYING IN THE 80s. SHE IS FOLLOWED BY , CHILD PSYCHOLOGIST IN [place], [place]. SHE REPORTS THAT HER LAST ECHO AND HEART CATH IN WERE STABLE. NO INTERVENTIONS WITH HER LAST HEART CATH. TODAY, SHE IS ALERT AND ORIENTED, LYING IN BED ON MORNING ROUNDS. SHE REPORTS THAT SHE HAS ONLY OCCASIONAL SHORTNESS OF BREATH, BUT DOES REPORT SLIGHT IMPROVEMENT IN SYMPTOMS SINCE ADMISSION. ON EXAMINATION, HEART IS REGULAR IN RATE AND RHYTHM. BILATERAL LUNGS ARE NOTED WITH DIMINISHED LUNG SOUNDS THROUGHOUT. ABDOMEN IS ROUND, SOFT, AND NON-TENDER WITH N ORMAL BOWEL SOUNDS NOTED IN ALL QUADRANTS. GOOD RANGE OF MOTION NOTED TO LOWER EXTREMITIES WITH TRACE EDEMA NOTED. THERE IS A CAST NOTED TO THE LEFT ARM. GONZALEZ CATHETER NOTED TO BEDSIDE DRAINAGE. HER VITALS THIS MORNING ARE: 98.0-78-18-98%-130/63. LABS WERE OBTAINED. WBC 10.7, RBC 4.11, HGB 13.1, HCT 37.7, PLT COUNT 458, SODIUM 133, POTASSIUM 4.3, CHLORIDE 94, BUN 17, CREATININE 0.89, GLUCOSE 127, CALCIUM 9.7, TOTAL BILI 0.60, AST 25, ALT 15, ALK PHOS 66, BNP 65.3, TOTAL PROTEIN 8.3, ALBUMIN 3.5. A CHEST XRAY WAS OBTAINED THIS MORNING AND REVEALED: Blunted left costophrenic sulcus can be seen with small pleural effusion or pleuro-parynchemal scarring. Left base patchy opacity may represent atelectasis or infiltrate. SHE IS CURRENTLY RECEIVING LASIX 20MG IV BID AND HER HOME MEDICATIONS WERE RESUMED. HOME MEDS INCLUDE: ATORVASTATIN, BISOPROLOL, COLACE, GABAPENTIN, NORCO, SYNTHROID, COZAAR, MILK OF MAGNESIA, MYSOLINE, AND ZOLOFT. WE WILL OBTAIN AN ECHOCARDIOGRAM TODAY. OTHERWISE, WE WILL FOLLOW UP WITH AM LABS AND CONTINUE TO MONITOR. TIME SPENT ON CLINICAL ASSESSMENT, REVIEWING LABS AND IMAGING, DECISION MAKING, AND DOCUMENTATION GREATER THAN 45 MINUTES. - Past Medical Family Social History Past Med/Fam/Surg Hx: No changes since H&P Allergies: Allergies albuterol Allergy (Verified 11/03/21 20:30) amitriptyline Allergy (Verified 11/03/21 20:30) gemfibrozil [From Lopid] Allergy (Verified 11/03/21 20:30) levofloxacin [From Levaquin] Allergy (Verified 11/03/21 20:30) milnacipran [From Savella] Allergy (Verified 11/03/21 20:30) Pknnwaf-YTZ-NtT Reductase Inhibitor Allergy (Verified 11/03/21 20:30) topiramate [From Topamax] Allergy (Verified 11/03/21 20:30) adhesive tape Adverse Reaction (Severe, Uncoded 11/03/21 20:41) RASH - Review of Systems ROS: No change since H&P - Vital Signs and I&O's Vital Signs: Vital Signs Temperature 98.0 F Temperature 98.3 F Pulse Rate [Left Radial] 78 Pulse Rate [Left Radial] 69 Respiratory Rate 18 Respiratory Rate 21 Blood Pressure [Right Arm] 130/63 Blood Pressure [Right Arm] 156/67 O2 Sat by Pulse Oximetry 98 O2 Sat by Pulse Oximetry 96 Intake and Output: Intake & Output 04/01/23 04/02/23 04/03/23 04/04/23 11:59 11:59 11:59 11:59 Intake Total 240 / 240 1862 / 1862 Output Total 2500 / 2500 2775 / 2775 Balance -2260 / -2260 -913 / -913 - Physical Exam Oriented: Normal Eyes: Normal Ear: Normal Nose: Normal Throat: Normal Cardiovascular: Normal, Edema (TRACE LOWER EXTREMITY EDEMA ) : Normal Auscultation: Bowel Sounds: Normal Palpation: Normal Tenderness: Normal Skin: Normal Musculoskeletal: Left, Wrist, Hand Psychiatric: Anxiety Affect: Anxious Speech Pattern: Clear, Appropriate - Laboratory and Diagnostics Result Diagrams: 04/04/23 05:30 04/04/23 05:30 Labs: Laboratory WBC 10.7 X10^3/uL (3.6-10.0) H 04/04/23 05:30 RBC 4.11 X10^6/uL (3.5-5.4) 04/04/23 05:30 Hgb 13.1 g/dL (12.0-16.0) 04/04/23 05:30 Hct 37.7 % (36.0-47.0) 04/04/23 05:30 MCV 91.7 fL (80.0-100.0) 04/04/23 05:30 MCH 31.8 pg (27.0-34.0) 04/04/23 05:30 MCHC 34.6 g/dL (33.0-35.0) 04/04/23 05:30 RDW 13.6 % (11.6-16.5) 04/04/23 05:30 Plt Count 458 X10^3/uL (150.0-450.0) H 04/04/23 05:30 MPV 8.4 fL (7.4-11.0) 04/04/23 05:30 Neut % (Auto) 68.3 % (42.0-75.0) 04/04/23 05:30 Lymph % (Auto) 20.4 % (21.0-51.0) L 04/04/23 05:30 [place] % (Auto) 6.5 % (0.0-13.0) 04/04/23 05:30 Eos % (Auto) 3.9 % (0.9-2.9) H 04/04/23 05:30 Baso % (Auto) 0.9 % (0.2-1.0) 04/04/23 05:30 Neut # (Auto) 7.3 x10^3/uL (2.2-4.8) H 04/04/23 05:30 Lymph # (Auto) 2.2 X10^3/uL (1.3-2.9) 04/04/23 05:30 [place] # (Auto) 0.7 x10^3/uL (0.3-0.8) 04/04/23 05:30 Eos # (Auto) 0.4 x10^3/uL (0.0-0.2) H 04/04/23 05:30 Baso # (Auto) 0.1 X10^3/uL (0.0-0.1) 04/04/23 05:30 Absolute Nucleated RBC 0.0 /100WBC 04/04/23 05:30 D-Dimer 1.04 ug/ml (0.0-0.57) H 04/02/23 13:25 Sample Site Rbra 04/02/23 12:50 ABG pH 7.450 (7.35-7.45) 04/02/23 12:50 ABG pCO2 39.0 mmHg (35.0-45.0) 04/02/23 12:50 ABG pO2 47.0 mmHg (80.0-100.0) L* 04/02/23 12:50 ABG HCO3 27.1 mmol/L (22-26) H 04/02/23 12:50 ABG O2 Saturation 85.0 % (90-100) L 04/02/23 12:50 ABG Base Excess 3.0 mmol/L (-2.0-2.0) H 04/02/23 12:50 Damien Test N/a 04/02/23 12:50 A-a Gradient 54.0 mmHg 04/02/23 12:50 FiO2 21.0 04/02/23 12:50 Blood Gas Comments Pt alvaro well elj 04/02/23 12:50 Sodium 133 mmol/L (136-145) L 04/04/23 05:30 Corrected Sodium 134 mmol/L (136-145) L 04/04/23 05:30 Potassium 4.3 mmol/L (3.5-5.1) 04/04/23 05:30 Chloride 94 mmol/L (98-107) L 04/04/23 05:30 Carbon Dioxide 27.4 mmol/L (21-32) 04/04/23 05:30 BUN 17 mg/dL (7-18) 04/04/23 05:30 Creatinine 0.89 mg/dL (0.55-1.02) 04/04/23 05:30 Est GFR (MDRD) Af Amer > 60 (>60) 04/04/23 05:30 Est GFR (MDRD) Non-Af > 60 (>60) 04/04/23 05:30 Glucose 127 mg/dL (65-99) H 04/04/23 05:30 POC Glucose (mg/dL) 127 mg/dL (65-99) H 04/04/23 05:31 Calcium 9.7 mg/dL (8.5-10.1) 04/04/23 05:30 Corrected Calcium TNP 04/04/23 05:30 Total Bilirubin 0.60 mg/dL (0.2-1.0) 04/04/23 05:30 AST 25 Units/L (15-37) 04/04/23 05:30 ALT 15 Units/L (12-78) 04/04/23 05:30 Alkaline Phosphatase 66 Units/L (46-116) 04/04/23 05:30 Creatine Kinase 80 Units/L (26-192) 04/03/23 14:25 Troponin I High Sens 6.5 ng/L (4.0-60.0) 04/03/23 14:25 B-Natriuretic Peptide 65.3 pg/mL (0-79) 04/04/23 05:30 Total Protein 8.3 g/dL (6.4-8.2) H 04/04/23 05:30 Albumin 3.5 g/dL (3.4-5.0) 04/04/23 05:30 Globulin 4.8 g/dL (2.5-4.5) H 04/04/23 05:30 Albumin/Globulin Ratio 0.7 Ratio (1.1-2.1) L 04/04/23 05:30 Specimen Type Catherized urine 04/02/23 16:23 Urine Color Pale yellow (YELLOW) 04/02/23 16:23 Urine Appearance Clear (CLEAR) 04/02/23 16:23 Urine pH 7.0 (5.0 - 8.0) 04/02/23 16:23 Ur Specific [place] 1.015 (1.000-1.030) 04/02/23 16:23 Urine Protein 1+ (NEGATIVE) 04/02/23 16:23 Urine Glucose (UA) Negative (NEGATIVE) 04/02/23 16: Urine Ketones Negative (NEGATIVE) 04/02/23 16: Urine Blood Negative (NEGATIVE) 04/02/23 16:23 Urine Nitrite Negative (NEGATIVE) 04/02/23 16:23 Urine Bilirubin Negative (NEGATIVE) 04/02/23 16:23 Urine Urobilinogen Normal (NORMAL) 04/02/23 16:23 Ur Leukocyte Esterase Negative (NEGATIVE) 04/02/23 16:23 Urine RBC 0-2 /HPF (0-3) 04/02/23 16:23 Urine WBC None seen /HPF (0-5) 04/02/23 16:23 Ur Squamous Epith Cells Rare /HPF (NEGATIVE) 04/02/23 16:23 Ur Renal Epithelial Cell Rare /HPF (NEGATIVE) 04/02/23 14:22 Urine Bacteria Negative /HPF (NEGATIVE) 04/02/23 16:23 Urine Yeast Rare /HPF (NEGATIVE) 04/02/23 16:23 Ur Culture Indicated? No/not indicated 04/02/23 16:23 SARS-CoV-2 (PCR) Negative (NEGATIVE) 04/02/23 12:56 Influenza Type A (PCR) Negative (NEGATIVE) 04/02/23 12:56 Influenza Type B (PCR) Negative (NEGATIVE) 04/02/23 12:56 RSV (PCR) Negative (NEGATIVE) 04/02/23 12:56 - Plan (1) CHF (congestive heart failure) Status: Acute Qualifiers: Heart failure type: unspecified Heart failure chronicity: acute on chronic Qualified Code(s): I50.9 - Heart failure, unspecified Plan: SUPPLEMENTAL O2. CE, EKG. IV LASIX WITH STRICT I&OS. REPEAT AM LABS AND CXR. OBTAIN ECHO. TELEMETRY, BP CONTROL. CTA OF LUNGS NEGATIVE FOR PE, OBTAINED IN ER ON ADMISSION (2) Hypoxia Status: Acute (3) Hypertension Status: Chronic Qualifiers: Hypertension type: primary hypertension Qualified Code(s): I10 - Essential (primary) hypertension Plan: CONTINUE COZAAR AND BISOPROLOL (4) Hyperlipidemia Status: Chronic Qualifiers: Hyperlipidemia type: mixed hyperlipidemia Qualified Code(s): E78.2 - Mixed hyperlipidemia Plan: CONTINUE ATORVASTATIN (5) Major depressive disorder Status: Chronic Qualifiers: Major depression recurrence: recurrent Major depression episode severity: mild Plan: CONTINUE ZOLOFT
[2023-04-04] MEDS: NORCO 5/325 MG TAB PO PRN ×2 (11:01→17:02)
[2023-04-04] MEDS: MYSOLINE PO SCH (21:19)
[2023-04-04] MEDS: LIPITOR TAB 20 MG PO SCH (21:19)
[2023-04-05] MEDS: NORCO 5/325 MG TAB PO PRN ×2 (00:14→09:29)
[2023-04-05 04:32] VITALS: RESP 20
--- NOTE | 2023-04-05 05:19 | RAD ---
HISTORYSOBSTUDYCHEST, 1 [id number] cardiomediastinal silhouette is stable. Chronic interstitial changes in lungs. No acute airspace disease. No pneumothorax or effusion. The bony thorax appears intact. ACDF hardware.IMPRESSIONNo acute cardiopulmonary disease.Electronically signed by: EARL SUGGS (Apr 05, 2023 05:18:25)
[2023-04-05] MEDS: SYNTHROID 112 mcg TAB PO SCH (06:13)
[2023-04-05 06:22] LABS: BASOPHILS # (AUTO) 0.1 X10^3/uL (0.0-0.1); EOSINOPHILS # (AUTO) 0.5 x10^3/uL (0.0-0.2); EOSINOPHILS % (AUTO) 5.7 % (0.9-2.9); HEMATOCRIT 35.9 % (36.0-47.0); HEMOGLOBIN 12.4 g/dL (12.0-16.0); LYMPHOCYTES # (AUTO) 2.2 X10^3/uL (1.3-2.9); LYMPHOCYTES % (AUTO) 24.8 % (21.0-51.0); MEAN CORPUSCULAR HEMOGLOBIN 31.6 pg (27.0-34.0); MEAN CORPUSCULAR HGB CONC 34.5 g/dL (33.0-35.0); MEAN CORPUSCULAR VOLUME 91.7 fL (80.0-100.0); MEAN PLATELET VOLUME 8.4 fL (7.4-11.0); MONOCYTES # (AUTO) 0.7 x10^3/uL (0.3-0.8); MONOCYTES % (AUTO) 7.5 % (0.0-13.0); NEUTROPHILS # (AUTO) 5.5 x10^3/uL (2.2-4.8); PLATELET COUNT 436 X10^3/uL (150.0-450.0); RED BLOOD COUNT 3.91 X10^6/uL (3.5-5.4); RED CELL DISTRIBUTION WIDTH 13.7 % (11.6-16.5)
[2023-04-05 06:38] LABS: ALANINE AMINOTRANSFERASE 11 Units/L (12-78); ALBUMIN 3.1 g/dL (3.4-5.0); ALKALINE PHOSPHATASE 68 Units/L (46-116); ASPARTATE AMINO TRANSFERASE 20 Units/L (15-37); BLOOD UREA NITROGEN 23 mg/dL (7-18); CALCIUM 9.3 mg/dL (8.5-10.1); CARBON DIOXIDE 26.8 mmol/L (21-32); CHLORIDE 94 mmol/L (98-107); COR NA(FOR HYPERGLY) 133 mmol/L (136-145); CREATININE 0.82 mg/dL (0.55-1.02); GLUCOSE 125 mg/dL (65-99); POTASSIUM 4.1 mmol/L (3.5-5.1); SODIUM 132 mmol/L (136-145); TOTAL PROTEIN 7.5 g/dL (6.4-8.2); eGFR NON BLACK RACES > 60 (>60)
[2023-04-05] MEDS: ZOLOFT PO SCH (09:14)
[2023-04-05] MEDS: COZAAR PO SCH (09:14)
[2023-04-05] MEDS: COLACE CAP 100 MG PO SCH (09:15)
[2023-04-05] MEDS: ZEBETA TAB 5 MG PO SCH (09:15)
[2023-04-05] MEDS: NEURONTIN CAP 300 MG PO SCH (09:15)
[2023-04-05] MEDS: MILK OF MAGNESIA PO SCH (09:16)
[2023-04-05 09:23] VITALS: BP 144/75; PULSE 66; TEMP 97.7; O2SAT 99
[2023-04-05 10:04] LABS: ABG BASE EXCESS 4.7 mmol/L (-2.0-2.0); ABG HCO3 28.2 mmol/L (22-26)
[2023-04-05 10:05] LABS: ABG ALLEN TEST POS
== END 2023-04-05 11:30 | disposition home or self-care (01) ==
LOC: ER 12:51 → MED/SURG 18:00
PROVIDERS: ADMIT Internal Medicine; ATTEND Internal Medicine